=== PATIENT | male | born 1965 | race Caucasian/White ===

== ENCOUNTER 2020-05-14 20:00 | Outpatient (CLI) | payer OTHER | END 2020-05-14 20:01 | disposition critical access hospital (66) | LOC: EMS 20:00 | PROVIDERS: ATTEND Emergency Medicine | DX: R07.9 Chest pain, unspecified (principal) | CPT/HCPCS: A0425; A0427 ==

== ENCOUNTER 2020-05-14 20:29 | Emergency (ER) | payer OTHER ==
[2020-05-14] MEDS ORDERED: SODIUM CHLORIDE 0.9% 1,000 ML IV STA (20:50)
[2020-05-14] MEDS ORDERED: HYDROmorphone 1 MG/ML CARPUJECT IVP STA (20:51)
[2020-05-14] MEDS ORDERED: KETOROLAC 30 MG/ML VIAL IVP STA (20:51)
[2020-05-14 21:07] LABS: BASOPHILS # (AUTO) 0.1 10^3/uL (0.0-0.1); BASOPHILS % (AUTO) 0.7 %; EOSINOPHILS # (AUTO) 0.3 10^3/uL (0.0-0.7); EOSINOPHILS % (AUTO) 3.5 %; HGB - HEMOGLOBIN 14.2 g/dL (14.0-18.0); LYMPHOCYTES # (AUTO) 1.9 10^3/uL (1.5-3.5); LYMPHOCYTES % (AUTO) 19.9 %; MEAN CORPUSCULAR HEMOGLOBIN 31.1 pg (27.0-31.0); MEAN CORPUSCULAR HGB CONC 33.6 g/dL (32.0-36.0); MEAN CORPUSCULAR VOLUME 92.3 fL (80.0-94.0); MEAN PLATELET VOLUME 11.8 fL (7.4-11.4); MONOCYTES # (AUTO) 0.8 10^3/uL (0.0-1.0); MONOCYTES % (AUTO) 8.9 %; NEUTROPHILS # (AUTO) 6.2 10^3/uL (1.5-6.6); NEUTROPHILS % (AUTO) 66.5 %; PLT - PLATELET COUNT 166 10^3/uL (130-450); RED BLOOD COUNT 4.57 10^6/uL (4.70-6.10); RED CELL DISTRIBUTION WIDTH 12.3 % (12.0-15.0); WHITE BLOOD COUNT 9.3 x10^3/uL (4.8-10.8)
[2020-05-14 21:14] LABS: INR 1.1 (0.8-1.2); PT - PROTHROMBIN TIME 12.7 secs (9.9-12.6)
--- NOTE | 2020-05-14 21:16 | XRAY Report ---
PROCEDURE: Chest 1 View X-Ray INDICATIONS: Chest Pain TECHNIQUE: One view of the chest was acquired. COMPARISON: None. FINDINGS: Surgical changes and devices: Stimulator device projects over the right chest with the leads extendin g cephalad along the right neck. Lungs and pleura: Low lung volumes with minimal, diffuse interstitial prominence and minimal streaky bibasilar opacities. No focal consolidation. No pleural effusion or pneumothorax. Mediastinum: Mediastinal contours appear normal. Heart size is normal. Bones and chest wall: No suspicious bony lesions. Overlying soft tissues appear unremarkable. IMPRESSION: Low lung volumes with minimal, diffuse interstitial prominence and minimal streaky bibasilar opacitie s. Findings are likely related to hypoventilatory changes. No focal consolidation. Consider follow-up imaging to confirm with dedicated upright PA and lateral views of the chest when patient is able. Reviewed by: Darren Up MD on 05/14/2020 9:15 PM PST Approved by: Darren Up MD on 05/14/2020 9:15 PM PST Station ID: [id number]
[2020-05-14 21:25] LABS: ALBUMIN 4.1 g/dL (3.2-5.5); ALBUMIN/GLOBULIN RATIO 1.3 (1.0-2.2); ALKALINE PHOSPHATASE 50 IU/L (42-121); ALT ALANINE AMINOTRANSFERASE < 10 IU/L (10-60); AST ASPARTATE AMINOTRANSFERASE 17 IU/L (10-42); BILIRUBIN,TOTAL 0.6 mg/dL (0.2-1.0); BUN - BLOOD UREA NITROGEN 14 mg/dL (6-20); CALCIUM 8.9 mg/dL (8.5-10.3); CARBON DIOXIDE - CO2 24 mmol/L (21-32); CHLORIDE 103 mmol/L (101-111); CREATININE 0.9 mg/dL (0.6-1.2); GLUCOSE 112 mg/dL (70-100); LIPASE 42 U/L (22-51); TOTAL PROTEIN 7.3 g/dL (6.7-8.2)
[2020-05-14] MEDS ORDERED: HYDROmorphone 2 MG/ML VIAL IVP STA (21:43)
[2020-05-14] MEDS ORDERED: diazePAM INJ 5 MG/ML SYRINGE IVP STA (21:43)
--- NOTE | 2020-05-14 22:03 | ED Physician Documentation ---
PD HPI CHEST PAIN - Stated complaint Stated Complaint: CP - Chief complaint Chief Complaint: Cardiac - History obtained from History obtained from: Patient - Additional information Additional information: Patient comes emergency department chief complaint of left chest pain/spasms that started approximately an hour and a half ago. The patient states that he has had spasms somewhat like this before but not as bad. He states that he just keeps every couple of minutes getting a strong, painful tightness in his chest wall that feels like a "charley horse". He states he cannot take a deep breath because it hurts to do so in that area. He states any movement that expands his chest wall when he is having one of the spasms causes more pain. He states the pains last for 10 seconds or less, then go away. He denies any air hunger. No nausea or vomiting. Patient states that the spasms are distinctly in what feels like the wall of his left chest, but that he also gets a tightness and spasm in his posterior left neck and intrascapular area when this happens. No diaphoresis or syncope/near syncope. No fevers or chills. No cough. No other complaints at this time. Patient has a history of Parkinson's disease which is active. He states he used to have a lot of problems with dystonia, but since getting a deep brain stimulator placed, this has improved his dystonia and spasms from that greatly. Review of Systems Ten Systems: 10 systems reviewed and negative Constitutional: reports: Reviewed and negative Eyes: reports: Reviewed and negative Ears: reports: Reviewed and negative Nose: reports: Reviewed and negative Throat: reports: Reviewed and negative Cardiac: reports: Chest pain / pressure Respiratory: reports: Reviewed and negative. denies: Dyspnea, Cough GI: reports: Reviewed and negative : reports: Reviewed and negative Skin: reports: Reviewed and negative Musculoskeletal: reports: Reviewed and negative Neurologic: reports: Reviewed and negative Psychiatric: reports: Reviewed and negative Endocrine: reports: Reviewed and negative Immunocompromised: reports: Reviewed and negative PD PAST MEDICAL HISTORY - Past Medical History Past Medical History: Yes Neuro: Parkinson's - Present Medications Home Medications: Ambulatory Orders Medication Instructions Recorded Confirmed Bupropion HCl [Wellbutrin Sr] 150 mg PO BID 03/24/16 05/14/20 Carbidopa/Levodopa 25/100 [Sinemet 1 tab PO TID 03/24/16 05/14/20 25 mg/100 mg] DULoxetine [Cymbalta] 60 mg PO DAILY 03/24/16 05/14/20 HYDROcod/ACETAM 5/325 [[place] 5/325] 1 - 2 ea PO Q6H PRN #15 05/14/20 Losartan [Cozaar] 100 mg PO DAILY 05/14/20 05/14/20 diazePAM [Valium] 5 - 10 mg PO TID PRN #15 05/14/20 - Allergies Allergies/Adverse Reactions: Allergies Allergy/AdvReac Type Severity Reaction Status Date / Time No Known Drug Allergies Allergy Verified 05/14/20 20:46 - Social History Does the pt smoke?: No Smoking Status: Never smoker Does the pt drink ETOH?: No Does the pt have substance abuse?: No - Immunizations Immunizations are current?: Yes PD ED PE NORMAL - Vitals Vital signs reviewed: Yes - General General: Alert and oriented X 3, No acute distress (Patient is mostly in no distress, except when he has a spasm of pain. At that time, he grimaces, cries out and clutches his left chest wall. These are observed to last for several seconds, then subside.), Well developed/nourished - HEENT HEENT: Atraumatic, PERRL, EOMI, Moist mucous membranes - Neck Neck: Supple, no meningeal sign, No bony TTP, Other (Tenderness left cervical paraspinal musculature with mildly increased tone.) - Cardiac Cardiac: RRR, No murmur, Strong equal pulses - Respiratory Respiratory: No respiratory distress, Clear bilaterally - Abdomen Abdomen: Soft, Non tender, Non distended - Back Back: No CVA TTP, No spinal TTP, Other (Tenderness left intrascapular musculature.) - Derm Derm: Normal color, Warm and dry, No rash - Extremities Extremities: No deformity, No edema, No calf tenderness / cord - Neuro Neuro: Alert and oriented X 3 - Psych Psych: Normal mood, Normal affect Results - Vitals Vitals: Vital Signs - 24 hr 05/14/20 05/14/20 05/14/20 20:38 20:48 21:16 Temperature 36.5 C Heart Rate 89 90 100 Respiratory 22 17 14 Rate Blood Pressure 147/109 H 147/109 H 154/115 H O2 Saturation 99 99 97 05/14/20 05/14/20 05/14/20 21:30 22:00 22:30 Temperature 36.8 C Heart Rate 95 98 104 H Respiratory 14 20 17 Rate Blood Pressure 141/100 H 150/131 H 141/101 H O2 Saturation 98 95 96 05/14/20 23:28 Temperature 36.8 C Heart Rate 98 Respiratory 16 Rate Blood Pressure 140/98 H O2 Saturation 98 Oxygen O2 Source Room air - EKG (time done) 2043 Rate: Rate (enter#) (89) Rhythm: NSR, LAE [place]: Normal QRS: LVH Ischemia: Normal ST segments, T wave inversion (III only) Other comments: Other comments (Significant interference noted, most likely from the battery pack for patient's deep brain stimulator, which is located in the patient's right chest wall.) Compare to prior EKG: Old EKG unavailable - Labs Labs: Laboratory Tests 05/14/20 05/14/20 05/14/20 21:02 21:02 21:02 WBC 9.3 RBC 4.57 L Hgb 14.2 Hct 42.2 MCV 92.3 MCH 31.1 H MCHC 33.6 RDW 12.3 Plt Count 166 MPV 11.8 H Neut # (Auto) 6.2 Lymph # (Auto) 1.9 [place] # (Auto) 0.8 Eos # (Auto) 0.3 Baso # (Auto) 0.1 Absolute Nucleated RBC 0.00 Nucleated RBC % 0.0 PT 12.7 H INR 1.1 Sodium 139 Potassium 4.2 Chloride 103 Carbon Dioxide 24 Anion Gap 12.0 BUN 14 Creatinine 0.9 Estimated GFR (MDRD) 88 L Glucose 112 H Calcium 8.9 Total Bilirubin 0.6 AST 17 ALT < 10 L Alkaline Phosphatase 50 Troponin I High Sens Total Protein 7.3 Albumin 4.1 Globulin 3.2 Albumin/Globulin Ratio 1.3 Lipase 42 05/14/20 05/14/20 21:02 22:25 WBC RBC Hgb Hct MCV MCH MCHC RDW Plt Count MPV Neut # (Auto) Lymph # (Auto) [place] # (Auto) Eos # (Auto) Baso # (Auto) Absolute Nucleated RBC Nucleated RBC % PT INR Sodium Potassium Chloride Carbon Dioxide Anion Gap BUN Creatinine Estimated GFR (MDRD) Glucose Calcium Total Bilirubin AST ALT Alkaline Phosphatase Troponin I High Sens 3.3 2.6 Total Protein Albumin Globulin Albumin/Globulin Ratio Lipase - Rads (name of study) CXR Radiology: Final report received, EMP read indepedently, See rad report (nad) PD MEDICAL DECISION MAKING - ED course Complexity details: reviewed results, re-evaluated patient, considered differential, d/w patient ED course: The patient was worked up with labs, EKG, and chest x-ray, all of which were unremarkable. Recurrent repeat troponin was also negative. The patient was initially given a dose of Toradol and a milligram of IV Dilaudid, which patient stated did not help his symptoms at all. Given that his symptoms seem to definitely be of a spasmic nature, I did order a dose of Valium along with a second dose of Dilaudid. Patient reported that this seemed to relax things quite a bit and that his spasms were not so strong and painful after that. I did not feel the patient was having cardiac chest pain. I have discussed with him that he should follow-up with his primary care physician to schedule stress test to close the loop on any question of underlying coronary artery disease, but at this point, given the very mechanical, spasmic nature of his chest pain, as well as the direct correlation with spasm in his neck, I feel this is the primary reason for symptoms at this time. The patient has just recently had an echocardiogram which is unremarkable. He states he can get into see his doctor this week if he calls to make an appointment. I have given him prescriptions for Vicodin and Valium at home, and we have discussed the usual indications for return. Departure - Departure Disposition: Home, Self Care Clinical Impression: Chest wall pain, Torticollis, acute Condition: Stable Instructions: ED Chest Pain NonCardiac, ED Spasm Muscle Prescriptions: HYDROcod/ACETAM 5/325 [[place] 5/325] 1 - 2 ea PO Q6H PRN #15 PRN Reason: Pain diazePAM [Valium] 5 - 10 mg PO TID PRN #15 PRN Reason: Spasms Comments: Your labs, EKG, and chest x-ray all look good. We have done 2 sets of cardiac enzymes at a 2-hour interval, and both look good, indicating no evidence of a heart attack at this time. Please call your primary doctor's office first thing on Friday if you are still having the episodes of chest pain, to set up an appointment to be seen in follow-up as soon as possible. You may take the Vicodin and Valium if needed. You may also use ibuprofen to help with any lingering soreness. It is not clear what is causing the spasms in your neck and your chest wall. It is possible that it is related to your Parkinson's disease, but further investigation by your neurologist may need to be done to determine this with certainty. No emergent condition has been found today. If you develop unremitting chest pain with air hunger and nausea, please return to the emergency department immediately. Discharge Date/Time: 05/14/20 23:28
[2020-05-14] MEDS ORDERED: diazePAM 5 MG TABLET PO STA (23:19)
[2020-05-14 23:28] VITALS: BP 140/98
== END 2020-05-14 23:28 | disposition home or self-care (01) ==
LOC: EDUNIT# → ED 20:29
DX: R07.89 Other chest pain (principal); M62.838 Other muscle spasm; M43.6 Torticollis; G20 Parkinson's disease; Z96.82 Presence of neurostimulator
CPT/HCPCS: 36415; 71045; 80053; 83690; 84484; 85025; 85610; 93005; 96361; 96374; 96375; 96376; 99284; A9270; J1170